=== PATIENT | male | born 1960 | race Caucasian/White ===

== ENCOUNTER 2019-01-04 23:10 | Emergency (ER) | payer MEDICAID ==
[~2019-01-04] VITALS: Ht 200.7 cm; Wt 118.2 kg
[~2019-01-04 23:10] MED LIST: ASPI81TA52 PO; ATOR40TA71 PO; CYCL-1 PO; FLEC100T2 PO; LEVO75TA PO; LISI-604 PO; LORA10TA7 PO; MULT-342 PO; NAPR-1154 PO; TIZA4CAP PO
[2019-01-04 23:49] LABS: BASOPHILS % (AUTO) 0.4 % (0-1); EOSINOPHILS # (AUTO) 0.2 X10'3 (0-0.9); EOSINOPHILS % (AUTO) 1.8 % (0-6); HEMATOCRIT 43.7 % (42.0-52.0); HEMOGLOBIN 14.9 g/dl (14.0-17.9); LYMPHOCYTES # (AUTO) 1.7 X10'3 (1.1-4.8); LYMPHOCYTES % (AUTO) 15.4 % (21-51); MEAN CORPUSCULAR HEMOGLOBIN 31.8 PG (27.0-31.0); MEAN CORPUSCULAR HGB CONC 34.2 g/dL (33.0-36.5); MEAN CORPUSCULAR VOLUME 93.1 FL (78-98); MEAN PLATELET VOLUME 8.4 FL (7.4-10.4); NEUTROPHILS # (AUTO) 8.1 X10'3 (1.8-7.7); NEUTROPHILS % (AUTO) 73.4 % (42-75); PLATELET COUNT 236 X10'3 (140-440); RED BLOOD COUNT 4.69 X10'6 (4.70-6.10); RED CELL DISTRIBUTION WIDTH 12.6 % (11.5-14.5); WHITE BLOOD COUNT 11.1 X10'3 (4.5-11.0)
[2019-01-05 00:03] LABS: PARTIAL THROMBOPLASTIN TIME 28 SECONDS (22-32)
[2019-01-05 00:04] LABS: ALANINE AMINOTRANSFERASE 43 U/L (12-78); ALBUMIN/GLOBULIN RATIO 1.1 (1.1-1.5); ALKALINE PHOSPHATASE 80 IU/L (46-116); ANION GAP 11 (8-16); ASPARTATE AMINO TRANSFERASE 19 U/L (10-37); BILIRUBIN,TOTAL 0.4 MG/DL (0.1-1.0); BLOOD UREA NITROGEN 13 MG/DL (7-18); BUN/CREATININE RATIO 13.1 (5.4-32.0); CALCIUM 8.7 MG/DL (8.5-10.1); CHLORIDE 107 MMOL/L (99-107); CREATININE 0.99 MG/DL (0.60-1.10); GLUCOSE 120 MG/DL (70-104); POTASSIUM 3.6 MMOL/L (3.5-5.1); SODIUM 143 MMOL/L (135-145); TOTAL CARBON DIOXIDE 25.5 MMOL/L (24-32); TOTAL PROTEIN 7.5 G/DL (6.4-8.2); eGFR 78 ML/MIN
[2019-01-05] MEDS ORDERED: LIDOcaine Viscous 15ml cup PO ONE (00:35)
[2019-01-05] MEDS ORDERED: mag hydrox/Alum hydrox/simeth 30ml oral suspension PO ONE (00:35)
[2019-01-05] MEDS ORDERED: nystatin 500,000 unit/5ML UD oral suspension PO STA (00:54)
[2019-01-05 01:04] LABS: HEMOGLOBIN A1C 5.4 % (4.5-6.2)
[2019-01-05] MEDS ORDERED: NYST1000 PO (01:25)
[2019-01-05] MEDS ORDERED: SUCR1TAB PO (01:25)
[2019-01-05 01:54] VITALS: BP 132/91
== END 2019-01-05 02:03 | disposition home or self-care (01) ==
LOC: ER 23:10
DX: K20.9 Esophagitis, unspecified (principal); E03.9 Hypothyroidism, unspecified; G89.29 Other chronic pain; Z95.0 Presence of cardiac pacemaker; Z98.890 Other specified postprocedural states; Z88.8 Allergy status to other drugs, medicaments and biological substances; Z79.82 Long term (current) use of aspirin; Z79.899 Other long term (current) drug therapy
CPT/HCPCS: 36415; 71045; 80053; 83036; 84484; 85025; 85610; 85730; 87081; 87880; 93005; 99284

== ENCOUNTER → 2019-12-07 | Day surgery (SDC) | payer MEDICAID ==
[2019-11-30 11:54] LABS: BASOPHILS % (AUTO) 0.7 % (0-1); EOSINOPHILS # (AUTO) 0.2 X10'3 (0-0.9); EOSINOPHILS % (AUTO) 2.6 % (0-6); LYMPHOCYTES # (AUTO) 1.9 X10'3 (1.1-4.8); LYMPHOCYTES % (AUTO) 32.1 % (21-51); MEAN CORPUSCULAR HEMOGLOBIN 31.7 PG (27.0-31.0); MEAN CORPUSCULAR HGB CONC 33.7 g/dL (33.0-36.5); MONOCYTES # (AUTO) 0.5 X10'3 (0-0.9); MONOCYTES % (AUTO) 9.3 % (2-12); NEUTROPHILS # (AUTO) 3.2 X10'3 (1.8-7.7); NEUTROPHILS % (AUTO) 55.3 % (42-75); PRE OP HEMATOCRIT 42.2 % (42.0-52.0); PRE OP HEMOGLOBIN 14.2 g/dL (14.0-17.9); PRE OP PLATELET COUNT 229 X10'3 (140-440); RED BLOOD COUNT 4.49 X10'6 (4.70-6.10); RED CELL DISTRIBUTION WIDTH 12.4 % (11.5-14.5)
[2019-11-30 11:55] LABS: ALBUMIN 4.1 G/DL (3.4-5.0); ALBUMIN/GLOBULIN RATIO 1.4 (1.1-1.5); ALKALINE PHOSPHATASE 62 IU/L (46-116); BLOOD UREA NITROGEN 16 MG/DL (7-18); BUN/CREATININE RATIO 16.3 (5.4-32.0); CHLORIDE 105 MMOL/L (99-107); CREATININE 0.98 MG/DL (0.60-1.10); PRE OP ALT 35 U/L (30-65); PRE OP ANION GAP 5 (8-16); PRE OP AST 23 U/L (10-37); PRE OP BILIRUB, TOTAL 0.5 MG/DL (0.0-1.0); PRE OP GLUCOSE 93 MG/DL (70-104); PRE OP SODIUM 140 MMOL/L (135-145); TOTAL CARBON DIOXIDE 29.9 MMOL/L (24-32); TOTAL PROTEIN 7.1 G/DL (6.4-8.2); eGFR 79 ML/MIN
[2019-12-07] VITALS (8 sets, daily range): BP systolic 105–125; BP diastolic 64–89
[~2019-12-07] VITALS: Ht 200.7 cm; Wt 116.0 kg
[~2019-12-07] MED LIST changes: +BUPIVAcaine/PF 2.5mg/ml (0.25%) 10ml vial ONE; +CARV6.253 PO; -CYCL-1 PO; +DOCUMENT DATE & TIME OF BETA-BLOCKER PO ONE; -FLEC100T2 PO; -LEVO75TA PO; +LIDOcaine 0.5% (5mg/ml) 50ml vial ONE; +LIDOcaine 1% (10mg/ml) 2ml vial ONE; -LISI-604 PO; +LOSA50TA64 PO; +MIDAZolam 5mg/5ml vial ONE; -MULT-342 PO; -NAPR-1154 PO; -TIZA4CAP PO; +cefazolin/dext.iso 2gm/50ml 50 ML IV ONE; +famotidine 20mg tablet PO ONE; +fentaNYL/PF 50MCG/1 ML 2ML syringe ONE; +meperidine/PF 25mg/ml syringe IV PRN; +morphine 2 MG/ML inj. syringe IV PRN; +morphine 4 MG/ML inj SYRINge IV PRN; +ondansetron/PF 4mg/2ml inj IV PRN; +proCHLORperazine 10 MG/2 ml inj IV PRN; +propofol inj 20 ML IV ONE; +ringers solution, lacted 1,000 ML IV SCH
--- NOTE | 2019-12-07 10:26 | NUR ---
Received from OR via [facility], accompanied by Anesthesiologist DR HARTMAN and report given by Anesthesiolgist. PATIENT responsive to questions but very sleepy, DENIES PAIN, V/S WNL, NEUROVASCULAR CHECKS INTACT, 20G PIV L hand IVF LR, SCD ON, DRESSING TO RIGHT WRIST CDI ELEVATED WITH ICEBAG APPLIED.
--- NOTE | 2019-12-07 11:24 | NUR ---
PATIENT A&OX4, DENIES PAIN, V/S WNL, NEUROVASCULAR CHECKS INTACT, 20G PIV LUE D/C, SCD OFF, DRESSING TO RIGHT WRIST CDI ELEVATED WITH ICEBAG APPLIED. I HAVE REVIEWED D/C INSTRUCTIONS WITH PATIENT AND THEY HAVE VERBALIZED UNDERSTANDING. PATIENT D/C HOME WITH ALL BELONGINGS AND [facility] GAVE TRANSPORT HOME. I also called his friend Sanchez Camargo to ask if he could meet the patient at his appartment upon arrival, and make sure all is well with him getting settled at home. Friend will oblige and will continue to check on pt over the next couple of days. Pt states he has pain meds at home.
== END | disposition home or self-care (01) ==
LOC: PAS 07:40
PROVIDERS: ATTEND Orthopaedic Surgery Hand Surgery
DX: M72.0 Palmar fascial fibromatosis [Dupuytren] (principal); I48.91 Unspecified atrial fibrillation; I10 Essential (primary) hypertension; E78.5 Hyperlipidemia, unspecified; E03.9 Hypothyroidism, unspecified; E66.9 Obesity, unspecified; Z68.28 Body mass index [BMI] 28.0-28.9, adult; Z72.89 Other problems related to lifestyle; Z95.0 Presence of cardiac pacemaker; Z98.890 Other specified postprocedural states; Z79.899 Other long term (current) drug therapy; Z20.828 Contact with and (suspected) exposure to other viral communicable diseases; Z79.82 Long term (current) use of aspirin
CPT/HCPCS: 26123; 26125; 36415; 80053; 82948; 85025; 87635; 93005; J2001; J2250; J2704; J3010; J3490; J7120; A4215; A4618; A7000

== ENCOUNTER 2020-07-04 20:40 | Emergency (ER) | payer MEDICAID ==
[~2020-07-04] VITALS: Ht 200.7 cm; Wt 118.2 kg
[~2020-07-04 20:40] MED LIST changes: -BUPIVAcaine/PF 2.5mg/ml (0.25%) 10ml vial ONE; -DOCUMENT DATE & TIME OF BETA-BLOCKER PO ONE; -LIDOcaine 0.5% (5mg/ml) 50ml vial ONE; -LIDOcaine 1% (10mg/ml) 2ml vial ONE; -MIDAZolam 5mg/5ml vial ONE; -cefazolin/dext.iso 2gm/50ml 50 ML IV ONE; -famotidine 20mg tablet PO ONE; -fentaNYL/PF 50MCG/1 ML 2ML syringe ONE; -meperidine/PF 25mg/ml syringe IV PRN; -morphine 2 MG/ML inj. syringe IV PRN; -morphine 4 MG/ML inj SYRINge IV PRN; -ondansetron/PF 4mg/2ml inj IV PRN; -proCHLORperazine 10 MG/2 ml inj IV PRN; -propofol inj 20 ML IV ONE; -ringers solution, lacted 1,000 ML IV SCH
[2020-07-04 21:05] LABS: BASOPHILS % (AUTO) 0.7 % (0-1); EOSINOPHILS # (AUTO) 0.1 X10'3 (0-0.9); EOSINOPHILS % (AUTO) 1.6 % (0-6); HEMATOCRIT 41.4 % (42.0-52.0); HEMOGLOBIN 14.1 g/dl (14.0-17.9); LYMPHOCYTES % (AUTO) 31.8 % (21-51); MEAN CORPUSCULAR HEMOGLOBIN 32.4 PG (27.0-31.0); MEAN CORPUSCULAR VOLUME 95.1 FL (78-98); MEAN PLATELET VOLUME 7.9 FL (7.4-10.4); MONOCYTES # (AUTO) 0.5 X10'3 (0-0.9); MONOCYTES % (AUTO) 8.6 % (2-12); NEUTROPHILS # (AUTO) 3.6 X10'3 (1.8-7.7); NEUTROPHILS % (AUTO) 57.3 % (42-75); PLATELET COUNT 202 X10'3 (140-440); RED BLOOD COUNT 4.35 X10'6 (4.70-6.10); RED CELL DISTRIBUTION WIDTH 12.5 % (11.5-14.5); WHITE BLOOD COUNT 6.3 X10'3 (4.5-11.0)
[2020-07-04 21:27] LABS: ALANINE AMINOTRANSFERASE 23 U/L (12-78); ALBUMIN 4.1 G/DL (3.4-5.0); ALBUMIN/GLOBULIN RATIO 1.5 (1.1-1.5); ALKALINE PHOSPHATASE 67 IU/L (46-116); ANION GAP 8 (8-16); ASPARTATE AMINO TRANSFERASE 24 U/L (10-37); BILIRUBIN,TOTAL 0.4 MG/DL (0.1-1.0); BLOOD UREA NITROGEN 19 MG/DL (7-18); BUN/CREATININE RATIO 20.2 (5.4-32.0); CALCIUM 8.7 MG/DL (8.5-10.1); CHLORIDE 106 MMOL/L (99-107); CREATININE 0.94 MG/DL (0.60-1.10); GLUCOSE 106 MG/DL (70-104); POTASSIUM 4.3 MMOL/L (3.5-5.1); SODIUM 141 MMOL/L (135-145); TOTAL CARBON DIOXIDE 27.1 MMOL/L (24-32); TOTAL PROTEIN 6.9 G/DL (6.4-8.2); eGFR 83 ML/MIN
--- NOTE | 2020-07-04 22:03 | NUR ---
pt reports he sees dr Siegel at [facility] for cardiology. Had stress test 2 weeks ago. Pt has been having dizzy spells and low bp issues.
--- NOTE | 2020-07-04 22:10 | NUR ---
PT WITH NO CP AT THIS TIME.
[2020-07-04 22:31] VITALS: BP 120/71
== END 2020-07-04 22:33 | disposition home or self-care (01) ==
LOC: ER 20:41
DX: R07.89 Other chest pain (principal); R51.9 Headache, unspecified; I10 Essential (primary) hypertension; E03.9 Hypothyroidism, unspecified; G89.29 Other chronic pain; Z95.0 Presence of cardiac pacemaker; Z98.890 Other specified postprocedural states; Z60.2 Problems related to living alone; Z88.6 Allergy status to analgesic agent; Z88.8 Allergy status to other drugs, medicaments and biological substances; Z79.82 Long term (current) use of aspirin; Z79.899 Other long term (current) drug therapy
CPT/HCPCS: 36415; 71045; 80053; 83880; 84484; 85025; 93005; 99285

== ENCOUNTER 2022-08-24 14:24 | Emergency (ER) | payer MEDICAID ==
[~2022-08-24] VITALS: Ht 200.7 cm; Wt 119.5 kg
[~2022-08-24 14:24] MED LIST changes: +CHOL20002 PO; -LORA10TA7 PO; +LYR25C PO; +PITO17.8 PO; +VENL75TA4 PO
[2022-08-24 16:43] VITALS: BP 132/110
== END 2022-08-24 16:45 | disposition home or self-care (01) ==
LOC: ER 14:25
DX: G47.00 Insomnia, unspecified (principal); R11.0 Nausea; R44.0 Auditory hallucinations; I10 Essential (primary) hypertension; E03.9 Hypothyroidism, unspecified; Z88.5 Allergy status to narcotic agent
CPT/HCPCS: 99281

== ENCOUNTER 2024-06-12 09:57 | Day surgery (SDC) | payer MEDICAID ==
[~2024-06-12] VITALS: Ht 200.7 cm; Wt 255.0 kg
[~2024-06-12 09:57] MED LIST changes: +AMLO5TAB16 PO; -ASPI81TA52 PO; +AZEL137S4 BOTHNARES; +BUDE0.5A3; -CHOL20002 PO; +FLUT16SP26 BOTHNARES; +LAMO25TA5; +LISD40CA; -LYR25C PO; -VENL75TA4 PO
[2024-06-12 10:22] VITALS: BP 112/63; PULSE 50; RESP 12; TEMP 98.7
[2024-06-12] MEDS ORDERED: simethicone 40mg/0.6ml oral drops 30ml ONE (10:28)
[2024-06-12] MEDS ORDERED: propofol inj 20 ML IV ONE (10:55)
[2024-06-12 10:59] VITALS: BP 100/54; PULSE 50; RESP 18; O2SAT 99
[2024-06-12 11:10] VITALS: BP 108/65; PULSE 50; RESP 15; O2SAT 100
[2024-06-12 11:20] VITALS: BP 113/67; PULSE 50; RESP 16; O2SAT 96
[2024-06-12 11:30] VITALS: BP 114/64; PULSE 50; RESP 15; O2SAT 98
== END 2024-06-12 11:56 | disposition home or self-care (01) ==
LOC: GI LAB 09:57
PROVIDERS: ATTEND Internal Medicine Gastroenterology
DX: R13.10 Dysphagia, unspecified (principal); K21.00 Gastro-esophageal reflux disease with esophagitis, without bleeding; K31.89 Other diseases of stomach and duodenum; I48.91 Unspecified atrial fibrillation; I10 Essential (primary) hypertension; G47.33 Obstructive sleep apnea (adult) (pediatric); F90.9 Attention-deficit hyperactivity disorder, unspecified type
CPT/HCPCS: 43239; J2704; J7030; Z7512; A4620